=== PATIENT | female | born 1980 | race Caucasian/White ===

== ENCOUNTER 2016-10-21 17:07 | Emergency (ER) | payer BC, OTHER ==
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
[2016-10-21] MEDS ORDERED: CYCL-331 PO (18:14)
[2016-10-21 18:25] VITALS: BP 132/81
== END 2016-10-21 18:26 | disposition home or self-care (01) ==
LOC: ER 17:07
DX: M62.838 Other muscle spasm (principal); R51 Headache; M54.2 Cervicalgia; R20.0 Anesthesia of skin; V89.2XXA Person injured in unspecified motor-vehicle accident, traffic, initial encounter; Y93.89 Activity, other specified; Y99.8 Other external cause status; Y92.488 Other paved roadways as the place of occurrence of the external cause
CPT/HCPCS: 70450; 72125; 99284-25

== ENCOUNTER → 2019-11-24 | Outpatient (CLI) | payer BC, OTHER ==
[~2019-11-24] MED LIST: CYCL-331 PO
--- NOTE | 2019-11-24 18:14 | RAD ---
BILATERAL SCREENING MAMMOGRAM, 3-D History: Routine screening. Comparison: None.. This exam is the baseline. Technique: MLO and CC digital tomosynthesis (3D) images obtained. Radiologist reviewed these images on dedicated workstation. Findings: Breast Tissue Density B : There are scattered areas of fibroglandular density. A small masses present involving the right lower breast and it measures 0.45 cm. This located 6.7 cm from the nipple. Asymmetry involving the left lower breast MLO projection is present. No suspicious finding on toe symphysis. No suspicious calcifications. No definite distortions.. IMPRESSION: Ultrasound examination of the small right lower inner breast masses recommended. Impression breast is recommended. Ultrasound may be needed. Spot compression imaging of the right breast may be BI-RADS Category 0: Incomplete: Need additional imaging evaluation. The images were reviewed with computer-aided detection. Patient information is entered into reminder system with a target due date for the next screening mammogram. Mammography is the most sensitive method for finding small breast cancers, but it does not detect them all and is not a substitute for careful clinical examination. A negative mammogram does not negate a clinically suspicious finding and should not result in delay in biopsying a clinically suspicious abnormality. "Our facility is accredited by the [employer] Mammography Program." Electronically signed by: Nestor Miller MD (11/24/2019 6:11 PM) [place] [id number]
== END | disposition home or self-care (01) ==
LOC: MAMMO 14:50
PROVIDERS: ATTEND Obstetrics & Gynecology
DX: Z12.31 Encounter for screening mammogram for malignant neoplasm of breast (principal)
CPT/HCPCS: 77063; 77067

== ENCOUNTER → 2019-11-30 | Outpatient (CLI) | payer BC ==
--- NOTE | 2019-11-30 18:04 | RAD ---
EXAMINATION: DIGITAL SCREEN RT W/CAD, BREAST RIGHT, 11/30/2019 3:00 PM CLINICAL INDICATION: Recalled for asymmetry in the lower inner right breast COMPARISON: Screening mammogram 11/24/2019 MAMMOGRAPHIC FINDINGS: The breasts contain scattered areas of fibroglandular density. There is no asymmetry seen on spot magnification CC and MLO views of the right breast. A asymmetry in the lower left breast middle to resolves with spot compression. SONOGRAPHIC FINDINGS: Ultrasound of the lower inner right breast demonstrates normal tissue. No mass or cyst. IMPRESSION: 1. No evidence of malignancy. 2. BI-RADS 1-negative. 3. Annual screening mammogram is recommended in 12 months. The patient will receive a reminder letter by mail when she is due for her next exam. Electronically signed by: Grisel Delgado MD (11/30/2019 6:01 PM) [id number]
== END ==
LOC: US 13:50
PROVIDERS: ATTEND Obstetrics & Gynecology
DX: Z12.31 Encounter for screening mammogram for malignant neoplasm of breast (principal)
CPT/HCPCS: 76641; 77067

== ENCOUNTER → 2020-12-12 | Outpatient (CLI) | payer BC ==
--- NOTE | 2020-12-12 17:51 | RAD ---
Bilateral digital screening 2-D and 3-D (digital breast tomosynthesis) mammogram: Reason for examination: Routine screening. Comparison: Mammogram from 11/24/2019. Interpretation was made with the benefit of CAD. FINDINGS: Breast density: Category B. There are scattered areas of fibroglandular density. No suspicious breast mass, malignant appearing calcifications, or architectural distortion is seen. T here is unchanged mild nodularity of right breast tissue. IMPRESSION: No evidence of malignancy. Assessment: BI-RADS 1. Negative. Recommendation: Routine screening mammograms. The patient will receive a letter with the results in the mail. Patient information will be entered i nto the mammography reminder system with a target recall date for the next mammogram. A reminder elsa er will be generated. Electronically signed by: Consuelo Mix MD (12/12/2020 5:48 PM) [id number]
== END ==
LOC: MAMMO 15:10
PROVIDERS: ATTEND Family Medicine
DX: Z12.31 Encounter for screening mammogram for malignant neoplasm of breast (principal)
CPT/HCPCS: 77063; 77067